=== PATIENT | female | born 1975 | race Caucasian/White ===

== ENCOUNTER 2017-02-28 06:11 | Emergency (ER) | payer MEDICAID ==
[~2017-02-28 06:11] MED LIST: APAP/HYDROCODON1 T13 PO; ASPIR-LOW81 M1 PO; COL100 PO; HYDROCHLOROTH12.5 M2 PO; LEVOTHYROXINE0.1 M2 PO; MECLIZINE HCL25 M1 PO; METFORMIN HCL500 MG PO; ZES10 PO
[2017-02-28 06:23] VITALS: BP 143/88
== END 2017-02-28 07:13 | disposition home or self-care (01) ==
LOC: ED 06:11
DX: H60.93 Unspecified otitis externa, bilateral (principal); R51 Headache; R63.0 Anorexia; I10 Essential (primary) hypertension; E11.9 Type 2 diabetes mellitus without complications; E07.9 Disorder of thyroid, unspecified; Z79.4 Long term (current) use of insulin

== ENCOUNTER 2020-09-22 11:01 | Emergency (ER) | payer MEDICAID, SELFPAY ==
[~2020-09-22] VITALS: Ht 157.5 cm; Wt 116.1 kg
[2020-09-22 11:13] VITALS: BP 125/72; Ht 157.5 cm; Wt 116.1 kg
[2020-09-22] MEDS ORDERED: NAPROSYN500 MG PO (11:58)
[2020-09-22] MEDS ORDERED: PHEDML PO (11:58)
[2020-09-22] MEDS ORDERED: ZOF4 PO (11:58)
[2020-09-22] MEDS ORDERED: TAMIFLU75 MG PO (11:58)
== END 2020-09-22 12:40 | disposition home or self-care (01) ==
LOC: ED 11:01
DX: B34.9 Viral infection, unspecified (principal); I10 Essential (primary) hypertension; E11.9 Type 2 diabetes mellitus without complications; Z20.822 Contact with and (suspected) exposure to COVID-19; Z90.49 Acquired absence of other specified parts of digestive tract
CPT/HCPCS: 87804; U0003